=== PATIENT | male | born 2000 | race Caucasian/White ===

== ENCOUNTER 2020-11-05 23:10 | Emergency (ER) | payer MEDICAID, OTHER ==
[~2020-11-05] VITALS: Ht 167.6 cm; Wt 86.2 kg
[2020-11-05 23:19] VITALS: BP 128/78
--- NOTE | 2020-11-05 23:19 | NUR ---
TO BED AMBULATORY
--- NOTE | 2020-11-05 23:27 | NUR ---
20/M C/O LACERATION ON R EYEBROW S/P FALLING ON STAIRS. PT STATES PAIN OF 5/10. NO ACTIVE BLEEDING NOTED ON ARRIVAL, PT AAOX4, DENIES ANY DIZZINESS OR VOMITING. DENIES PMH NKDA
[2020-11-05] MEDS ORDERED: BACITRACIN OINT 500 UNITS/GM PKT TP ONE (23:40)
[2020-11-05] MEDS ORDERED: LIDOCAINE/EPI 1% 1:100000 20 ML VIAL INJ ONE (23:40)
--- NOTE | 2020-11-06 00:10 | NUR ---
ERMD AT BEDSIDE SUTURING PATIENT
[2020-11-06] MEDS ORDERED: ACET-10509 PO (00:42)
[2020-11-06 00:59] VITALS: BP 128/78
== END 2020-11-06 01:00 | disposition home or self-care (01) ==
LOC: MED 23:10
DX: S01.81XA Laceration without foreign body of other part of head, initial encounter (principal); W19.XXXA Unspecified fall, initial encounter; Y93.89 Activity, other specified; Y92.89 Other specified places as the place of occurrence of the external cause; Y99.8 Other external cause status
CPT/HCPCS: 12011; 90471; 90715; 99283; J2001; 12001

== ENCOUNTER 2020-11-24 12:13 | Emergency (ER) | payer OTHER ==
[~2020-11-24] VITALS: Ht 167.6 cm; Wt 87.3 kg
[~2020-11-24 12:13] MED LIST: ACET-10509 PO
--- NOTE | 2020-11-24 12:25 | NUR ---
Patient ambulated to bed 09 with steady/even gait.
[2020-11-24 12:28] VITALS: BP 129/95
--- NOTE | 2020-11-24 12:34 | NUR ---
20 Y/O MALE PRESENTS TO ED FOR SUTURE REMOVAL ON FOREHEAD/R EYEBROW. PT HAD SUTURES PLACED 11/05 HERE. DENIES FEVER/CHILLS, WARMTH, REDNESS, SWELLING. DENIES PAIN AT THIS TIME. NO DRAINAGE, BLEEDING, SWELLING, REDNESS NOTED TO SUTURE SITE. BED LOCKED IN LOWEST POSITION, SIDE RAILS X1. VSS. PMH:ASTHMA-ALBUTEROL NKDA
--- NOTE | 2020-11-24 13:18 | NUR ---
Patient discharged with v/s stable. Written and verbal after care instructions given and explained. Patient verbalized understanding. Ambulatory with steady gait. All questions addressed prior to discharge. Advised to follow up with PMD.
== END 2020-11-24 13:18 | disposition home or self-care (01) ==
LOC: MED 12:13
DX: S01.81XD Laceration without foreign body of other part of head, subsequent encounter (principal); F17.200 Nicotine dependence, unspecified, uncomplicated; F12.90 Cannabis use, unspecified, uncomplicated; Z79.899 Other long term (current) drug therapy; X58.XXXD Exposure to other specified factors, subsequent encounter
CPT/HCPCS: 99281

== ENCOUNTER 2021-02-22 21:49 | Emergency (ER) | payer MEDICAID, OTHER ==
[~2021-02-22] VITALS: Ht 167.6 cm; Wt 84.4 kg
[2021-02-22 22:15] VITALS: BP 130/78
[2021-02-22] MEDS ORDERED: ACYCLOVIR 200 MG CAP PO ONE (23:25)
[2021-02-22] MEDS ORDERED: predniSONE 20 MG TAB PO ONE (23:25)
[2021-02-23] MEDS ORDERED: PRED20TA5 PO (00:48)
[2021-02-23] MEDS ORDERED: ACYC-276 PO (00:48)
[2021-02-23] MEDS ORDERED: ACYCLOVIR 200 MG CAP ONE (00:59)
[2021-02-23] MEDS ORDERED: predniSONE 20 MG TAB ONE (00:59)
[2021-02-23 01:00] VITALS: BP 130/78
--- NOTE | 2021-02-23 01:00 | NUR ---
PATIENT ELOPED FROM FACILITY. DISCHARGE INSTRUCTIONS NOT GIVEN TO PATIENT. DR. HAYNES NOTIFIED.
--- NOTE | 2021-02-23 02:20 | NUR ---
Patient returned for d/c paperwork. Patient discharged and written and verbal after care instructions given and explained. Patient alert, oriented and verbalized understanding of instructions. Ambulatory with steady gait. All questions addressed prior to discharge. ID band removed. Patient advised to follow up with PMD. Rx of ACYCLOVIR, PREDNISONE given. Patient educated on indication of medication including possible reaction and side effects. Opportunity to ask questions provided and answered.
== END 2021-02-23 02:20 | disposition home or self-care (01) ==
LOC: MED 21:49
DX: G51.0 Bell's palsy (principal); Z79.899 Other long term (current) drug therapy
CPT/HCPCS: 70450; 99284; J7512